=== PATIENT | female | born 1980 ===

== ENCOUNTER 2016-07-06 06:17 | Day surgery (SDC) | payer OTHER ==
[2016-07-05 09:41] VITALS: BMI 24.9
[2016-07-06 06:49] VITALS: RESP 18
[2016-07-06] MEDS ORDERED: ePHEDrine 50 mg/ml Inj ONE (07:14)
[2016-07-06] MEDS ORDERED: Phenylephrine 10 mg/ml Inj ONE (07:14)
[2016-07-06] MEDS ORDERED: Midazolam 2 MG/2 ML VIAL ONE (07:14)
[2016-07-06] MEDS ORDERED: Propofol 10 mg/ml Inj (20 ML) ONE (07:14)
[2016-07-06] MEDS ORDERED: Succinylcholine 200 mg/10 ml Inj IV ONE (07:14)
[2016-07-06] MEDS ORDERED: Sevoflurane - Inhalation Anesthetic Liq (250 ml) ONE (07:23)
[2016-07-06] MEDS ORDERED: Lactated Ringer's 1,000 ML IV ONE (07:50)
--- NOTE | 2016-07-06 07:54 | CP.SDSHP ---
Same Day Surgery H & P - History Proposed Procedure: D&C/hysteroscopy/Myosure procedure/EUA Pre-Op Diagnosis: Irregular bleeding/endometrial polyp - Previous Medical/Surgical History Previous Surgical History: denies - Allergies Allergies: Allergies No Known Allergies Allergy (Verified 07/05/16 09:41) - Current Medications Current Medications: Fish oil; Vit D - Physical Exam Vital Signs: Vital Signs 07/06/16 07/06/16 06:48 06:51 Temperature 97.7 F Pulse Rate 87 87 Respiratory 18 Rate Blood Pressure 123/68 O2 Sat by Pulse 99 Oximetry Neuro: WNL Heart: WNL Lungs: WNL GI: WNL - {Optional Preform as Required} Abdomen: WNL Integument: WNL PAYROLL LEAD: WNL : WNL ENT: WNL - Impression Impression: Endometrial polyp.irregular bleeding....for D&C hysteroscopy/ Myosure...informed consent obtained Pt. Evaluated Today:Candidate for Anesthesia & Procedure: Yes - Date & Time Date: 07/06/16 Time: 07:30 Short Stay Discharge - Short Stay Discharge Admitting Diagnosis/Reason for Visit: N92.6/ N92.1/ Z87.898 Disposition: HOME/ ROUTINE
[2016-07-06] MEDS ORDERED: Dexamethasone 4 mg/1 ml ONE (07:56)
[2016-07-06] MEDS ORDERED: Silver Nitrate Topical - Stick ONE (08:02)
[2016-07-06] MEDS ORDERED: Ferric Subsulfate Sol(60 mL) ONE (08:02)
[2016-07-06] MEDS ORDERED: Oxycodone/Acetaminophen 5/325 mg Tab PO PRN (08:35)
[2016-07-06] MEDS ORDERED: HYDROmorphone 0.5 mg/0.5 ml ISec IVP PRN (08:36)
--- NOTE | 2016-07-06 08:46 | PCM.SURG1 ---
Surgeon's Initial Post Op Note - Surgeon's Notes Surgeon: Shahbaz Sánchez DO [employer]: none Type of Anesthesia: General LMA Anesthesia Administered By: Dr Foss Pre-Operative Diagnosis: Endometrial polyp Operative Findings: same Post-Operative Diagnosis: same Operation Performed: Hysteroscopy/Myosure procedure Specimen/Specimens Removed: endometrial polyp Estimated Blood Loss: EBL {In ML}: 0 Blood Products Given: N/A Drains Used: No Drains Post-Op Condition: Good Date of Surgery/Procedure: 07/06/16 Time of Surgery/Procedure: 08:15
[2016-07-06 09:13] VITALS: O2SAT 100
[2016-07-06 09:51] VITALS: TEMP 97.6
[2016-07-06 10:49] VITALS: BP 114/69; PULSE 79
--- NOTE | 2016-07-09 11:06 | OP ---
PROCEDURE DATE: 07/06/2016 SURGEON: Joaquín Wilkins DO. DECORATING KILN OPERATOR: None. ANESTHESIOLOGIST: Dr. Foss. ANESTHESIA: General LMA. PREOPERATIVE DIAGNOSIS: Endometrial polyp. POSTOPERATIVE DIAGNOSIS: Endometrial polyp. OPERATIVE FINDINGS: Endometrial polyp. OPERATION PERFORMED: Dilation, hysteroscopy, MyoSure procedure, removal of endometrial polyp. SPECIMENS: Included endometrial polyp. BLOOD LOSS: None. DRAINS: None. POSTOPERATIVE CONDITION: Good. PROCEDURE: The patient was brought to the operating room. She was placed in lithotomy position. Compression boots were placed on both lower extremities after general anesthesia was induced. She was draped and prepped in the usual sterile manner. Catheter was used to drain the bladder of its contents. Exam under anesthesia was performed. No palpable adnexal masses. Uterus not enlarged. The cervix was closed. A weighted speculum was placed in the posterior fornix of the vagina, right angle retractor in the anterior fornix of the vagina to visualize the cervix. Cervix was grasped at the 12 o'clock position using a single-toothed tenaculum. Thereafter, using dilators, cervix was gradually dilated. Hysteroscope was then introduced into the endocervical canal and into the uterus. Both ostia were identified, and an endometrial polyp was noted at the left anterior part of the uterus. In using MyoSure, polypectomy was performed. Also, there was a small amount of tissue noted in the posterior wall of the uterus. This tissue was also obtained. At the site of the single-toothed tenaculum, bleeding was noted. AgNO3 and Monels solution applied. One 2.0 chromic suture was used for hemostasis. All equipment was removed and accounted for. She tolerated the procedure well and was transferred to the recovery room in stable condition. Joaquín Wilkins DO cc: 135 TT: 07/09/2016 11:05:14 jn MTDD
== END 2016-07-06 11:05 | disposition home or self-care (01) ==
LOC: H.OPSURG 06:17
PROVIDERS: ATTEND Obstetrics & Gynecology
DX: N84.0 Polyp of corpus uteri (principal); N92.6 Irregular menstruation, unspecified

== ENCOUNTER 2017-11-25 07:15 | Inpatient (IN) | payer OTHER ==
[2017-11-25 08:09] VITALS: BMI 27.8
--- NOTE | 2017-11-25 08:24 | OBHP ---
Datetime: 11/25/2017 08:23 IP Adm Impression: Postterm, intrauterine IP Admit Plan: Admit to unit; Initiate labor protocol Extremities - PN: Normal Abdomen - PN: Normal Back - PN: Normal Lungs - PN: Normal Heart - PN: Normal Neurologic - PN: Normal HEENT - PN: Normal General - PN: Normal Membranes, Provider: Bulging Pool Provider: Negative Nitrazine Provider: Negative Ferning Provider: Negative IP Indication for Induction: Not Applicable IP Chief Complaint: Uterine contractions Dilatation, Provider: 4 Effacement, Provider: 90 Station, Provider: -2 Genitourinary Exam: Normal Datetime: 11/25/2017 08:20 Admit Comment, IP Provider: 37 yo G1 at 41 wks in labor, admitted to L_D. FHT reassuring. GBS nega tive. Pt desires an epidural. H_P dictated, "[id number]" (ES) FHR - Baseline A Provider: 120's Contraction Comments Provider: Q2 Vital Signs Provider: Reviewed NICHD Variability Prov Fetus A: Moderate 6-25bpm NICHD Accel Fetus A IP Provider: 15X15 FHR Category Provider Fetus A: Category I NICHD Decel Fetus A IP Provider: None
--- NOTE | 2017-11-25 08:26 | OBADHP ---
Datetime: 11/25/2017 08:23 Admit Comment, IP Provider: 37 yo G1 at 41 wks in labor, admitted to L_D. FHT reassuring. GBS nega tive. Pt desires an epidural. H_P dictated, "[id number]" (ES) Extremities - PN: Normal Abdomen - PN: Normal Back - PN: Normal Lungs - PN: Normal Heart - PN: Normal Neurologic - PN: Normal HEENT - PN: Normal General - PN: Normal FHR - Baseline A Provider: 120's Membranes, Provider: Bulging Contraction Comments Provider: Q2 Pool Provider: Negative Nitrazine Provider: Negative Ferning Provider: Negative IP Chief Complaint: Uterine contractions NICHD Variability Prov Fetus A: Moderate 6-25bpm NICHD Accel Fetus A IP Provider: 15X15 FHR Category Provider Fetus A: Category I NICHD Decel Fetus A IP Provider: None Dilatation, Provider: 4 Effacement, Provider: 90 Station, Provider: -2 Genitourinary Exam: Normal IP Adm Impression: Postterm, intrauterine IP Admit Plan: Admit to unit; Initiate labor protocol Datetime: 11/25/2017 08:20 Vital Signs Provider: Reviewed
[2017-11-25 09:23] LABS: BASO % 0.3 % (0.0-2.0); EOS % 0.3 % (0.0-4.0); HEMOGLOBIN 13.3 g/dL (12.0-16.0); LYMPH # 1.9 K/uL (1.0-4.3); LYMPH % 17.9 % (20.0-40.0); MEAN CORPUSCULAR HEMOGLOBIN 28.7 pg (27.0-31.0); MEAN CORPUSCULAR HGB CONC 33.4 g/dL (33.0-37.0); MEAN PLATELET VOLUME 10.6 fl (7.2-11.7); MONO # 0.5 K/uL (0.0-0.8); MONO % 5.2 % (0.0-10.0); NEUT # 7.9 K/uL (1.8-7.0); NEUT % 76.3 % (50.0-75.0); NRBC % 0.1 % (0.0-0.0); RBC 4.63 Mil/uL (3.80-5.20); WHITE BLOOD COUNT 10.4 K/uL (4.8-10.8)
[2017-11-25] MEDS ORDERED: Lactated Ringer's 1,000 ML IV SCH (10:30)
[2017-11-25] MEDS ORDERED: Oxytocin 30 units/LR 500ML 30 UNITS/500 ML BAG IV ONE (15:10)
[2017-11-25] MEDS: Lactated Ringer's 1,000 ML IV SCH ×2 (15:15→16:14)
--- NOTE | 2017-11-25 15:34 | OBPN ---
Datetime: 11/25/2017 15:27 IP Progress Impression: Normal progression of labor IP Informed Consent Obtain: Vaginal Delivery IP Procedures: Sterile Vag Exam IP Progress Plan: Continue present management Membranes, Provider: Ruptured Contraction Comments Provider: q 5-6 mins FHR - Baseline A Provider: 125 IP Progress Note Comment: Patient evaluated, feeling some increased pain with contractions VE=6/-1, AROM LWV=960 mod maribell, +accels, no decels A/P 1. patient progressing, now 6cm, AROM 2. CEFM and TOCO 3. Patient intersted in epidural soon, will re-evaluate as needed Vital Signs Provider: Reviewed; Within Normal Limits NICHD Accel Fetus A IP Provider: 15X15 NICHD Variability Prov Fetus A: Moderate 6-25bpm Dilatation, Provider: 6 Effacement, Provider: 90 Station, Provider: -1 NICHD Decel Fetus A IP Provider: None Datetime: 11/25/2017 08:23 Pool Provider: Negative Nitrazine Provider: Negative Ferning Provider: Negative FHR Category Provider Fetus A: Category I
[2017-11-25] MEDS ORDERED: Fentanyl/Bupivacaine HCl 250 ML EPI ONE (16:15)
[2017-11-25] MEDS ORDERED: Oxytocin 30 UNIT 30 UNITS/500 ML BAG IV ONE (18:01)
--- NOTE | 2017-11-25 19:26 | HP ---
Copied To: Angelo Thomason MD Attending MD: Angelo Thomason MD HISTORY OF PRESENT ILLNESS: This is a 37-year-old G1 at 41 weeks with an EDC of 11/18/2017 by ultrasound who is complaining of painful contractions since 02:30 a.m. that have become more intense and more frequent, reports of leaking a little bit of fluid. Denies vaginal bleeding. Reports positive movement. The patient was discharged care with [facility] with Dr. Wilkins. The patient is advanced maternal age, declined amnio and she had bilateral axillary masses, seen by . Had ultrasounds and a biopsy was recommended and she has not yet gone for that. As of 10/24/2017, her GBS was negative. PAST MEDICAL HISTORY: Healthy. Cervical compression, went to PT for three months in 2011. She has a history of syncope and bilateral masses in the axilla. PAST SURGICAL HISTORY: She had endometrial polyp removed in 05/2016. MEDICATIONS: vitamins. ALLERGIES: NO KNOWN DRUG ALLERGIES. FAMILY HISTORY: Her maternal grandfather was , had diabetes. Maternal grandmother alive. Mother is diagnosed with hypertension. Paternal aunt, she had two with a history of breast cancer. Paternal grandfather who had diabetes. Paternal grandmother who had leukemia. Siblings alive with a history of prediabetes, OCD, bipolar and anxiety. SOCIAL HISTORY: The patient denies tobacco, alcohol or illicit drug use. She is and she is an finance attorney. LABS: On 03/25/2017, HIV negative. Jignesh Horizon 27 negative. Her varicella zoster virus IgG was positive. Blood type is O negative. Antibody screen negative. Hemoglobin electrophoresis is normal. Urine culture, no growth. Gonorrhea and Chlamydia were negative. Her TSH is 2.78. RPR nonreactive. Rubella IgG positive. Hepatitis B surface antigen negative. On 05/08/2017, her panorama test was low risk female fetus. On 05/20/2017, her Hexosaminidase A were normal. On 06/06/2017, her MSAFP was negative. On 06/20/2017, her urine culture was no growth. On 08/08/2017, her one-hour glucose 142. On 08/16/2017, her fasting was 86, one-hour 158, two-hour was 106, and three-hour was 80. On 08/28/2017, HIV was nonreactive. Her RPR was nonreactive and on 10/24/2017, her GBS was negative. PHYSICAL EXAMINATION: GENERAL: The patient appears comfortable lying in the stretcher. VITAL SIGNS: Afebrile. Vital signs stable. CHEST: Lungs clear to auscultation bilaterally. HEART: Regular rate and rhythm. ABDOMEN: Soft, nontender. Gravid. EXTREMITIES: Nontender. SPECULUM: Mucous with brown specks. Negative nitrazine. Negative Ferning. Vaginal exam was 4 cm dilated, 90% effaced in bulging bag at 08:00 a.m. External monitoring. Baseline 120s with moderate variability and positive accelerations. She is bowen. Tocodynamometer, it is kind of difficult to discern, but she is bowen about every may be two minutes. ASSESSMENT AND PLAN: This is a 37-year-old G1 at 41 weeks in labor. heart tracing is reassuring. Group B streptococcus is negative. The patient desires an epidural. The patient is to be admitted to Labor and Delivery. Angelo Thomason MD
--- NOTE | 2017-11-25 23:54 | OBPN ---
Datetime: 11/25/2017 22:30 IP Progress Impression: Normal progression of labor IP Informed Consent Obtain: Vaginal Delivery IP Procedures: Sterile Vag Exam IP Progress Plan: Continue present management Membranes, Provider: Ruptured Contraction Comments Provider: q 2-3 mins FHR - Baseline A Provider: 140 IP Progress Note Comment: Patient comfortable VE=10/100/1 KNL=253 mod maribell, +accels, early decels TOCO = ctxning q 2-3 mins A/p 1. Patient in second stage of labor, not feeling urge to push 2. Will wait for patient to feel increased urge to push and then do trial pushing 3. CEFM and TOCO NICHD Accel Fetus A IP Provider: 15X15 NICHD Variability Prov Fetus A: Moderate 6-25bpm Dilatation, Provider: 10 Effacement, Provider: 100 Station, Provider: 1 NICHD Decel Fetus A IP Provider: Early
[2017-11-26] MEDS ORDERED: Benzocaine/Menthol SPRAY TOP PRN ×2 (01:28→05:20)
[2017-11-26] MEDS ORDERED: Oxycodone/Acetaminophen 5/325 mg Tab PO PRN ×2 (01:28→05:20)
--- NOTE | 2017-11-26 01:55 | OBDS ---
MATERNAL INFORMATION Provider Comments: of live female over intact perineum CHRISTINE loose nuchal cord, followed b y shoulders and rest of infant 7lbs 10oz, 9/9, placed on mother's chest, cord with delayed cor d clamping, cord blood obtained, placenta delivered spontaneously, fundus firm, OOB=[id number], 2nd degree laceration repaired with 2-0 vicryl rapide, pt tolerated procedure well LABOR SUMMARY EDC: 11/18/2017 00:00 No. Babies in Womb: 1 LABOR INFORMATION Onset of Labor: 11/25/2017 03:00 Group B Beta Strep: Negative MEMBRANES Membranes Rupture Method: Artificial Amniotic Fluid Color: Clear Amniotic Fluid Amount: Small Amniotic Fluid Odor: Normal PRESENTATION/POSITION BABY A Presentation: Cephalic
[2017-11-26 08:27] LABS: BASO % 0.1 % (0.0-2.0); EOS % 0.1 % (0.0-4.0); LYMPH # 1.4 K/uL (1.0-4.3); LYMPH % 10.7 % (20.0-40.0); MEAN CORPUSCULAR HEMOGLOBIN 29.3 pg (27.0-31.0); MEAN CORPUSCULAR HGB CONC 34.1 g/dL (33.0-37.0); MEAN PLATELET VOLUME 11.2 fl (7.2-11.7); NEUT # 10.3 K/uL (1.8-7.0); NEUT % 81.1 % (50.0-75.0); RBC 3.24 Mil/uL (3.80-5.20); RED CELL DISTRIBUTION WIDTH 16.1 % (11.5-14.5); WHITE BLOOD COUNT 12.7 K/uL (4.8-10.8)
[2017-11-26 08:34] LABS: HEMOGLOBIN 9.5 g/dL (12.0-16.0)
--- NOTE | 2017-11-27 11:05 | OBPPN ---
Datetime: 11/27/2017 10:53 PP Pain Prov: Within normal limits PP Nausea Prov: Denies PP Flatus Prov: Yes PP Breasts Prov: Normal PP Heart Prov: Normal PP Lungs Prov: Normal PP Abdomen/Uterus Prov: Normal PP Lochia Prov: Normal PP Extremities Prov: Normal PP C/S Incision Prov: Not Applicable PP Progress Prov: Normal PP Impression Prov: Normal progression PP Plan Prov: Continue present management PP Progress Note Prov: s: tolerating reg diet well; some frustration w/ nurse at [facility] to instruct and reassure. pain well controlled i: ppd1 doing well hgb 9.5 p: rx senokot s and begin iron sitz baths d/w pt and perineal care pt reassured reg concerns for IP PP Procedures: None Vital Signs Provider PP: Within Normal Limits Vital Signs Provider Details PP: hgb 9.5
[2017-11-27] MEDS ORDERED: Docusate-Senna 50 mg-8.6 mg Tab PO SCH (22:00)
[2017-11-28] MEDS ORDERED: Vitamin A/D oint 60G TP ONE (12:40)
--- NOTE | 2017-11-28 19:37 | OBPPN ---
Datetime: 11/28/2017 19:35 PP Pain Prov: Within normal limits PP Nausea Prov: Denies PP Flatus Prov: Yes PP BM Prov: No PP Breasts Prov: Normal PP Heart Prov: Normal PP Lungs Prov: Normal PP Abdomen/Uterus Prov: Normal PP Lochia Prov: Normal PP Vulva/Perineum Prov: Normal PP CVA Tenderness Prov: Normal PP Extremities Prov: Normal PP C/S Incision Prov: Not Applicable PP Progress Prov: Normal PP Comments Phys Exam Prov: Uterus firm, below umbilicus Abdomen soft, nontender, nondistended No deep calf tenderness bilaterally PP Progress Note Prov: day #2 status post , patient recovering well Patient discharged home, follow-up in office in 6 weeks for follow-up Patient discharged with precautions Vital Signs Provider PP: Reviewed; Within Normal Limits
--- NOTE | 2017-11-28 19:40 | OBDCSUM ---
Datetime: 11/28/2017 11:43 Discharged to, Provider: Home Follow up at, Provider: Bar Disch Instr Activity: May Shower Disch Instr Diet: Regular Discharge Instructions, Provider: Routine instructions given Discharge Diagnosis, Provider: Term Delivered Discharge Time: 11/28/2017 13:00 Follow up in weeks, Provider: 4-6 weeks Disch Referrals: None Contraception discussed, Prov: Yes Disch Activity Restrictions: No lifting; No sexual activity; Nothing in vagina - Hood, tampon s, douche Contraception after Delivery: Undecided
[2017-11-29 01:16] VITALS: BP 125/82; PULSE 91; RESP 20; TEMP 97.9; O2SAT 100
== END 2017-11-28 13:50 | disposition home or self-care (01) | DRG 775 ==
LOC: H.EROB2 07:15 → H.EROB 08:09 → H.L&D 12:29 → H.OB/GYN 11-26 04:10
PROVIDERS: ADMIT Obstetrics & Gynecology; ATTEND Obstetrics & Gynecology
PROC: 4A1HXCZ Monitoring of Products of Conception, Cardiac Rate, External Approach (ICD-10-PCS; 2017-11-25)
PROC: 10E0XZZ Delivery of Products of Conception, External Approach (ICD-10-PCS; principal; 2017-11-26)
PROC: 0KQM0ZZ Repair Perineum Muscle, Open Approach (ICD-10-PCS; 2017-11-26)
PROC: 10907ZC Drainage of Amniotic Fluid, Therapeutic from Products of Conception, Via Natural or Artificial Opening (ICD-10-PCS; 2017-11-26)
DX: O48.0 Post-term pregnancy (principal); O70.1 Second degree perineal laceration during delivery; O69.81X0 Labor and delivery complicated by cord around neck, without compression, not applicable or unspecified; Z37.0 Single live birth; Z3A.41 41 weeks gestation of pregnancy